=== PATIENT | female | born 1975 | race Caucasian/White ===

== ENCOUNTER 2020-08-20 14:27 | Emergency (ER) | payer OTHER ==
[~2020-08-20] VITALS: Ht 170.2 cm; Wt 65.0 kg
[2020-08-20 14:29] VITALS: BP 121/82
[2020-08-20] MEDS ORDERED: LORazepam 1MG TABLET ONE (14:36)
--- NOTE | 2020-08-20 14:41 | NUR ---
REPORT RECIEVED FROM DAYNAA, ASSUMED CARE OF PT AT THIS TIME. PT CRYING ON GURNEY, MOTHER AT BEDSIDE CONSOLING HER. PT MEDICATED PER MAR, GIVEN PRIVACY, NOT OTHER NEEDS AT THIS TIME.
[2020-08-20] MEDS ORDERED: LORazepam 1MG TABLET PO ONE (15:00)
--- NOTE | 2020-08-20 16:20 | NUR ---
ERMD IN TO UPDATE PT ON POC, CHAPPLAN PREVIOUSLY IN TO SPEAK WITH PT. PT MUCH CALMER AT THIS TIME.
== END 2020-08-20 16:58 | disposition home or self-care (01) ==
LOC: ED 16:30
DX: F43.23 Adjustment disorder with mixed anxiety and depressed mood (principal); R53.83 Other fatigue
CPT/HCPCS: 99283